=== PATIENT | male | born 1985 | race Caucasian/White ===

== ENCOUNTER 2016-10-27 18:25 | Emergency (ER) ==
[2016-10-27 18:27] VITALS: BP 106/70; TEMP 98.7; BMI 25.8
--- NOTE | 2016-10-27 18:36 | ED.PDOC ---
General ED Provider: Dr. SCOTT SAUNDERS Chief Complaint: Finger Laceration Stated Complaint: finger laceration Time Seen by Physician: 18:35 ( by a nail) Mode of Arrival: Walk-In Information Source: Patient Exam Limitations: No limitations Primary Care Provider: JOHN BRAUN Nursing and Triage Documentation Reviewed and Agree: Yes Skin Complaint Exam - Laceration/Upper Ext. Complaint/Exam Location of Injury: Right (5th finger ) Mechanism of Injury: Laceration (by a nail) Onset/Duration: 1 hr Symptoms Are: Still present Initial Severity: Mild Current Severity: None Aggravating: None Alleviating: None Associated Signs and Symptoms: Denies: Fever, Chills, Erythema, Numbness, Tingling Differential Diagnoses: Laceration Review of Systems - Review Of Systems Constitutional: Reports: No symptoms Eyes: Reports: No symptoms Ears, Nose, Mouth, Throat: Reports: No symptoms Respiratory: Reports: No symptoms Cardiac: Reports: No symptoms GI: Reports: No symptoms : Reports: No symptoms Musculoskeletal: Reports: No symptoms Skin: Reports: Other (laceration) Neurological: Reports: No symptoms Endocrine: Reports: No symptoms Hematologic/Lymphatic: Reports: No symptoms All Other Systems: Reviewed and Negative Past Medical History - Past Medical History Previously Healthy: Yes Endocrine: Reports: None Cardiovascular: Reports: None Respiratory: Reports: None Hematological: Reports: None Gastrointestinal: Reports: None Genitourinary: Reports: None Neuro/Psych: Reports: None Musculoskeletal: Reports: None Cancer: Reports: None Other Pertinent Past Medical History: hx of narcotic dependence..on methadone now - Surgical History General Surgical History: Reports: Unknown - Family History Family History: Reports: Unknown - Social History Smoking Status: Current every day smoker Hx Substance Use: No Alcohol Screening: Occasionally Physical Exam - Physical Exam Appearance: Well-appearing, No pain distress, Well-nourished Eyes: KONSTANTIN, EOMI, Conjunctiva clear ENT: Ears normal, Nose normal, Oropharynx normal Respiratory: Airway patent, Breath sounds clear, Breath sounds equal, Respirations nonlabored Cardiovascular: RRR, Pulses normal, No rub, No murmur GI/: Soft, Nontender, No masses, Bowel sounds normal, No Organomegaly Musculoskeletal: Normal strength, ROM intact, No edema, No calf tenderness Skin: Warm, Dry (0.7cm laceration on involved finger) Neurological: Sensation intact, Motor intact, Reflexes intact, Cranial nerves intact, Alert, Oriented Psychiatric: Affect appropriate, Mood appropriate Critical Care Note - Critical Care Note Total Time (mins): 0 Course - Course Orders, Labs, Meds: Orders Category Date Time Status Tetanus and Diphtheria Tox/Pf [Tenivac] MEDS 10/27/16 18:37 Discontinued 0.5 ml IM .ONCE ONE Medications Discontinued Medications Generic Name Dose Route Start Last Admin Trade Name Freq PRN Reason Stop Dose Admin Tetanus/Diphtheria Toxoids Adsorbed 0.5 ml 10/27/16 18:37 10/27/16 18:44 Tenivac IM 10/27/16 18:38 0.5 ml .ONCE ONE Administration Vital Signs: Temp Pulse Resp BP Pulse Ox 10/27/16 18:26 98.7 F 73 20 106/70 95 Departure - Departure Time of Disposition: 19:00 (refused sutured dermabonded nurse at bedside ) Disposition: HOME SELF-CARE Discharge Problem: Laceration of finger Instructions: Laceration (ED), Skin Adhesive Care (ED) Condition: Good Pt referred to PMD for follow-up: No Additional Instructions: Please call your Family Physician as soon as possible to schedule a follow-up appointment. Allergies/Adverse Reactions: Allergies No Known Allergies Allergy (Verified 10/27/16 18:28) Home Medications: Ambulatory Orders Methadone HCl 150 mg PO DAILY 05/27/14 Disposition Discussed With: Patient
[2016-10-27] MEDS ORDERED: TENIVAC IM ONE (18:37)
== END 2016-10-27 18:55 | disposition home or self-care (01) ==
LOC: ED 18:25
DX: S61.216A Laceration without foreign body of right little finger without damage to nail, initial encounter (principal); W45.0XXA Nail entering through skin, initial encounter; F17.210 Nicotine dependence, cigarettes, uncomplicated
CPT/HCPCS: 90471; 99283

== ENCOUNTER 2017-02-01 11:01 | Outpatient (CLI) ==
[2017-02-01 11:17] LABS: BASOPHILS % (AUTO) 0.5 % (0.0-3.0); EOSINOPHILS # (AUTO) 0.1 K/ul (0.0-0.7); HEMATOCRIT 37.1 % (42.0-52.0); HEMOGLOBIN 12.6 g/dl (14.0-18.0); IMMATURE GRANULOCYTE % (AUTO) 0.3 % (0.0-5.0); LYMPHOCYTES # (AUTO) 1.1 K/uL (0.60-3.4); LYMPHOCYTES % (AUTO) 12.4 (10.0-50.0); MEAN CORPUSCULAR HEMOGLOBIN 29.2 pg (27.0-31.0); MEAN CORPUSCULAR VOLUME 86.1 fl (80.0-94.0); MONOCYTES # (AUTO) 0.4 K/uL (0.4-2.0); MONOCYTES % (AUTO) 4.4 (0-10); NEUTROPHILS # (AUTO) 7.1 K/ul (2.0-6.9); NEUTROPHILS % (AUTO) 81.4; PLATELET COUNT 256 10^3/uL (140-440); RED BLOOD COUNT 4.31 10^6/ul (4.70-6.10); WHITE BLOOD COUNT 8.78 K/ul (4.2-10.2)
[2017-02-01 11:28] LABS: ADD URINE MICROSCOPIC YES; BILIRUBIN,URINE Negative (NEGATIVE); KETONES,URINE Negative (NEGATIVE); LEUKOCYTE ESTERASE ,URINE Negative (NEGATIVE); NITRITE,URINE Negative (NEGATIVE); PROTEIN,URINE Negative (NEGATIVE); URINE, BLOOD Trace-lysed (NEGATIVE)
[2017-02-01 11:37] LABS: ALBUMIN 3.4 g/dL (3.4-5.0); ALBUMIN/GLOBULIN RATIO 1.31; ANION GAP 11.5; BILIRUBIN,TOTAL 0.24 mg/dL (0.00-1.20); BUN/CREATININE RATIO 6.66; CALCIUM 8.9 mg/dL (8.2-10.2); CREATININE 0.9 mg/dL (0.60-1.10); POTASSIUM 3.5 mmol/L (3.5-5.1)
[2017-02-01 11:38] LABS: SPERM,URINE 1+ (NOT PRESENT)
--- NOTE | 2017-02-01 12:58 | CT ---
EXAM: CT of the abdomen pelvis without contrast History: Abdominal and flank pain. Comparison: CT abdomen pelvis 10/05/2013 Technique: Multiplanar CT images through the abdomen pelvis were obtained without the administration of IV contrast Findings: Lung bases are clear. No acute osseous abnormalities. No discrete gallstones identified by CT. No focal liver or splenic lesions. No renal stones and no hydronephrosis. The visualized appendix is not dilated or inflamed. Patel colonic wall thickening wit h pericolonic inflammation. Bladder is not well distended. No free air. No ascites. No peripancre atic inflammation. Adrenal glands are unremarkable. Impression: Pancolitis. The etiology is most likely infectious or inflammatory.
== END 2017-02-01 11:02 | disposition home or self-care (01) ==
LOC: RAD 11:01
PROVIDERS: ATTEND Nurse Practitioner Family
DX: R10.9 Unspecified abdominal pain (principal); R10.817 Generalized abdominal tenderness; R11.0 Nausea; R19.7 Diarrhea, unspecified
CPT/HCPCS: 36415; 80053; 81001; 85025; 87015; 87045; 87493; 87899; 89055

== ENCOUNTER 2017-02-20 15:06 | Emergency (ER) ==
[2017-02-20 15:12] VITALS: BP 129/81; TEMP 97; BMI 23.9
[2017-02-20 16:16] LABS: BASOPHILS % (AUTO) 0.4 % (0.0-3.0); EOSINOPHILS # (AUTO) 0.1 K/ul (0.0-0.7); EOSINOPHILS % (AUTO) 0.7 % (0.0-7.0); IMMATURE GRANULOCYTE % (AUTO) 0.3 % (0.0-5.0); LYMPHOCYTES # (AUTO) 0.8 K/uL (0.60-3.4); MEAN CORPUSCULAR HEMOGLOBIN 29.4 pg (27.0-31.0); MEAN CORPUSCULAR HGB CONC 33.3 (31.8-35.4); MEAN CORPUSCULAR VOLUME 88.2 fl (80.0-94.0); MONOCYTES # (AUTO) 0.4 K/uL (0.4-2.0); MONOCYTES % (AUTO) 4.9 (0-10); NEUTROPHILS # (AUTO) 6.3 K/ul (2.0-6.9); NEUTROPHILS % (AUTO) 83.7; PLATELET COUNT 199 10^3/uL (140-440); RED BLOOD COUNT 4.42 10^6/ul (4.70-6.10); WHITE BLOOD COUNT 7.49 K/ul (4.2-10.2)
[2017-02-20 16:22] LABS: BILIRUBIN,URINE 1+ (NEGATIVE); KETONES,URINE Trace (NEGATIVE); LEUKOCYTE ESTERASE ,URINE Trace (NEGATIVE); NITRITE,URINE Positive (NEGATIVE); PH,URINE 6.5 (5-9); PROTEIN,URINE Negative (NEGATIVE); URINE, BLOOD Negative (NEGATIVE)
[2017-02-20 16:23] LABS: ADD URINE MICROSCOPIC YES
[2017-02-20 16:42] LABS: ALBUMIN 2.9 g/dL (3.4-5.0); ALBUMIN/GLOBULIN RATIO 1.07; ANION GAP 7.4; BILIRUBIN,TOTAL 0.26 mg/dL (0.00-1.20); BUN/CREATININE RATIO 8.86; CALCIUM 8.4 mg/dL (8.2-10.2); CREATININE 0.79 mg/dL (0.60-1.10); POTASSIUM 3.4 mmol/L (3.5-5.1); TOTAL PROTEIN 5.6 g/dL (6.4-8.2)
--- NOTE | 2017-02-20 17:01 | CT ---
EXAM: CT of the abdomen pelvis without contrast History: Abdominal pain. Comparison: CT abdomen pelvis 02/01/2017 Technique: Multiplanar CT images through the abdomen pelvis were obtained without the administration of IV contrast Findings: Lung bases are free of consolidation. No acute osseous abnormalities. No discrete gallstones identified by CT. No focal liver or splenic lesions. No peripancreatic infla mmation. Adrenal glands are unremarkable. No renal stones and no hydronephrosis. The appendix is n ot dilated or inflamed. No bowel obstruction. No bladder wall thickening. Prostate is not enlarged . No free air. No ascites. Persistent damon colonic wall thickening but slightly improved compared t o the prior study. Prominent scattered reactive mesenteric lymph nodes again identified. Impression: Persistent but slightly improving pancolitis. Etiology is most likely infectious or inf lammatory.
--- NOTE | 2017-02-20 17:25 | ED.PDOC ---
General ED Provider: Dr. SCOTT SAUNDERS Chief Complaint: Nausea/Vomiting Stated Complaint: abdominal pain Time Seen by Physician: 15:10 (this is a chronic condition) Mode of Arrival: Walk-In Information Source: Patient Exam Limitations: No limitations Primary Care Provider: JOHN BRAUN Nursing and Triage Documentation Reviewed and Agree: Yes GI Complaint Exam - Abdominal Pain Complaint/Exam Onset: Gradual Duration: chronic with many flares no colonscopy has been done Symptoms Are: Resolved Timing: Intermittent Initial Severity: Moderate Current Severity: Mild Location of Pain: Diffuse Radiates To: Denies: Chest, Back, Flank, LLQ, RLQ, Inguinal Character: Reports: Cramping Aggravating: Reports: None Alleviating: Reports: None Associated Signs and Symptoms: Denies: Diaphoresis, Fever, Cough, Chest pain, Dizziness, Back pain, Constipation, Blood in stool, Dysuria, Urinary frequency, Decreased urine output, Decreased appetite, Discharge, Nausea, Vomiting, Diarrhea, Decreased activity Related History: Reports: Similar episode AAA Risk Factors: Reports: None Cardiac Risk Factors: Reports: None Testicular Torsion Risk Factors: Reports: None Surgical Obstruction Risk Factors: Reports: None Related Surgical History: Reports: None Abdominal Findings: Present: None Differential Diagnoses: Constipation, Gastroenteritis, Hepatitis, Pancreatitis, Pneumonia, Renal Colic, Ureteral Stone, UTI Review of Systems - Review Of Systems Constitutional: Reports: No symptoms Eyes: Reports: No symptoms Ears, Nose, Mouth, Throat: Reports: No symptoms Respiratory: Reports: No symptoms Cardiac: Reports: No symptoms GI: Reports: Abdominal pain : Reports: No symptoms Musculoskeletal: Reports: No symptoms Skin: Reports: No symptoms Neurological: Reports: No symptoms Endocrine: Reports: No symptoms Hematologic/Lymphatic: Reports: No symptoms All Other Systems: Reviewed and Negative Past Medical History - Past Medical History Previously Healthy: Yes Endocrine: Reports: None Cardiovascular: Reports: None Respiratory: Reports: None Hematological: Reports: None Gastrointestinal: Reports: None Genitourinary: Reports: None Neuro/Psych: Reports: None Musculoskeletal: Reports: None Cancer: Reports: None Other Pertinent Past Medical History: hx of narcotic dependence..on methadone now - Surgical History General Surgical History: Reports: Unknown - Family History Family History: Reports: Unknown - Social History Smoking Status: Current every day smoker, Heavy tobacco smoker Hx Substance Use: No Alcohol Screening: None Physical Exam - Physical Exam Appearance: Well-appearing, No pain distress, Well-nourished Eyes: KONSTANTIN, EOMI, Conjunctiva clear ENT: Ears normal, Nose normal, Oropharynx normal Respiratory: Airway patent, Breath sounds clear, Breath sounds equal, Respirations nonlabored Cardiovascular: RRR, Pulses normal, No rub, No murmur GI/: Soft, Nontender, No masses, Bowel sounds normal, No Organomegaly Musculoskeletal: Normal strength, ROM intact, No edema, No calf tenderness Skin: Warm, Dry, Normal color Neurological: Sensation intact, Motor intact, Reflexes intact, Cranial nerves intact, Alert, Oriented Psychiatric: Affect appropriate, Mood appropriate Interpretation - Radiology Interpretation Radiology Interpretation By: Radiologist Radiology Results: No acute changes Critical Care Note - Critical Care Note Total Time (mins): 0 Course - Course Hematology/Chemistry: 02/20/17 16:12 02/20/17 16:12 Orders, Labs, Meds: Lab Review 02/20/17 02/20/17 02/20/17 15:20 16:12 16:12 WBC 7.49 RBC 4.42 L Hgb 13.0 L Hct 39.0 L MCV 88.2 MCH 29.4 MCHC 33.3 RDW Coeff of [place] 13.4 Plt Count 199 Immature Gran % (Auto) 0.3 Neut % (Auto) 83.7 Lymph % (Auto) 10.0 [place] % (Auto) 4.9 Eos % (Auto) 0.7 Baso % (Auto) 0.4 Immature Gran # (Auto) 0.0 Neut # 6.3 Lymph # 0.8 [place] # 0.4 Eos # 0.1 Baso # 0.0 Sodium 138 Potassium 3.4 L Chloride 105 Carbon Dioxide 29 Anion Gap 7.4 BUN 7 Creatinine 0.79 Estimated GFR (MDRD) 113.00 BUN/Creatinine Ratio 8.86 Glucose 118 H Calcium 8.4 Total Bilirubin 0.26 AST 13 L ALT 12 Alkaline Phosphatase 63 Total Protein 5.6 L Albumin 2.9 L Globulin 2.7 Albumin/Globulin Ratio 1.07 Amylase 35 Lipase 5 L Urine Color Yellow Urine Clarity Clear Urine pH 6.5 Ur Specific [place] 1.025 Urine Protein Negative Urine Glucose (UA) Negative Urine Ketones Trace Urine Blood Negative Urine Nitrite Positive Urine Bilirubin 1+ Urine Urobilinogen 0.2 Ur Leukocyte Esterase Trace Urine Microscopic RBC 0-2 Urine Microscopic WBC 0-2 Ur Squamous Epith Cells Not present Orders Category Date Time Status AMYLASE Stat LAB 02/20/17 16:12 Completed CBC W/ AUTO DIFF Stat LAB 02/20/17 16:12 Completed COMPREHENSIVE METABOLIC PANEL Stat LAB 02/20/17 16:12 Completed LIPASE Stat LAB 02/20/17 16:12 Completed URINALYSIS C & S IF INDICATED Stat LAB 02/20/17 15:20 Completed URINE CULTURE Stat LAB 02/20/17 15:[address] ABDOMEN/PELVIS WO CONTRAST Stat RADS 02/20/17 16:03 Completed Vital Signs: Temp Pulse Resp BP Pulse Ox 02/20/17 15:07 97 F L 90 20 129/81 96 Departure - Departure Time of Disposition: 17:24 (discharge info given with efren at bedside ) Disposition: HOME SELF-CARE Discharge Problem: Colitis Abdominal pain Qualifiers: Abdominal location: generalized Qualified Code(s): R10.84 - Generalized abdominal pain Instructions: Colitis (ED), Abdominal Pain (ED) Condition: Good Pt referred to PMD for follow-up: Yes Additional Instructions: Please call your Family Physician as soon as possible to schedule a follow-up appointment. you need a colonscopy as soon as possible as we discussed Allergies/Adverse Reactions: Allergies No Known Allergies Allergy (Verified 02/20/17 15:13) Home Medications: Ambulatory Orders Methadone HCl 150 mg PO DAILY 05/27/14 Disposition Discussed With: Patient
== END 2017-02-20 17:41 | disposition home or self-care (01) ==
LOC: ED 15:06
DX: R10.84 Generalized abdominal pain (principal); K52.9 Noninfective gastroenteritis and colitis, unspecified; F17.210 Nicotine dependence, cigarettes, uncomplicated
CPT/HCPCS: 36415; 80053; 81001; 82150; 83690; 85025; 87086; 99283

== ENCOUNTER 2017-11-28 09:39 | Emergency (ER) | payer OTHER ==
[2017-11-28 09:47] VITALS: BP 118/70; TEMP 97.9; BMI 26.2
--- NOTE | 2017-11-28 10:15 | ED.PDOC ---
General ED Provider: Dr. PEE MASON Chief Complaint: Rash Stated Complaint: Rash. Onset 2 days ago ; exposed to poison gregory at [facility]. Location: Rt Leg outer posterior aspect. Few lesions abdomen. Assoc: Itching. Shoulder Pain. RT/NO known injury. Pain upon ROM of Rt Shoulder through circumduction. Chronic. Time Seen by Physician: 10:00 Mode of Arrival: Walk-In Information Source: Patient Exam Limitations: No limitations Primary Care Provider: JACIEL LEACH Nursing and Triage Documentation Reviewed and Agree: Yes Does patient meet sepsis criteria?: No System Inflammatory Response Syndrome: Not Applicable Sepsis Protocol: For patient's 13 years and over: Temp is 96.8 and below OR 101 and greater Pulse >90 BPM Resp >20/minute Acutely Altered Mental Status Are patient's symptoms suggestive of a new infection, such as: -Pneumonia -Skin, Soft Tissue -Endocarditis -UTI -Bone, Joint Infection -Implantable Device -Acute Abdominal Infection -Wound Infection -Meningitis -Blood Stream Catheter Infection -Unknown Skin Complaint Exam - Skin Rash/Itching Complaint/Exam Onset/Duration: 2 days Symptoms Are: Still present Initial Severity: Severe Current Severity: Moderate Potential Exposures: Reports: Plants Aggravating: Reports: Heat, Clothing Alleviating: Reports: None Associated Signs and Symptoms: Denies: Difficulty breathing, Fever, Chills Skin Findings: Present: Papules, Vesicles Differential Diagnoses: Allergic Reaction, Contact Dermatitis Review of Systems - Review Of Systems Constitutional: Reports: No symptoms Eyes: Reports: No symptoms Ears, Nose, Mouth, Throat: Reports: No symptoms Respiratory: Reports: No symptoms Cardiac: Reports: No symptoms GI: Reports: No symptoms : Reports: No symptoms Musculoskeletal: Reports: No symptoms, Joint pain Skin: Reports: No symptoms, Rash Neurological: Reports: No symptoms Endocrine: Reports: No symptoms Hematologic/Lymphatic: Reports: No symptoms All Other Systems: Reviewed and Negative Past Medical History - Past Medical History Previously Healthy: Yes Endocrine: Reports: None Cardiovascular: Reports: None Respiratory: Reports: None Hematological: Reports: None Gastrointestinal: Reports: None Genitourinary: Reports: None Neuro/Psych: Reports: None Musculoskeletal: Reports: None Cancer: Reports: None Other Pertinent Past Medical History: hx of narcotic dependence..on methadone now - Surgical History General Surgical History: Reports: Unknown - Family History Family History: Reports: Unknown - Social History Smoking Status: Current every day smoker, Heavy tobacco smoker Hx Substance Use: Yes (TAKES METHADONE) Alcohol Screening: None - Immunizations Tetanus Shot up to Date: Yes Physical Exam - Physical Exam Appearance: Well-appearing, No pain distress, Well-nourished Eyes: KONSTANTIN, EOMI, Conjunctiva clear ENT: Ears normal, Nose normal, Oropharynx normal Respiratory: Airway patent, Breath sounds clear, Breath sounds equal, Respirations nonlabored Cardiovascular: RRR, Pulses normal, No rub, No murmur GI/: Soft, Nontender, No masses, Bowel sounds normal, No Organomegaly Musculoskeletal: Normal strength (Tenderness RT AC), ROM intact, No edema, No calf tenderness Skin: Warm, Dry (Rash Rt leg-papulovesicular diffuse), Normal color Neurological: Sensation intact, Motor intact, Reflexes intact, Cranial nerves intact, Alert, Oriented Psychiatric: Affect appropriate, Mood appropriate Critical Care Note - Critical Care Note Total Time (mins): 0 Course - Course Orders, Labs, Meds: Orders Category Date Time Status Methylprednisolone Sod Succ/Pf [Solu-Medrol 125 mg] MEDS 11/28/17 10:20 Discontinued 125 mg IM ONCE STA SHOULDER, RIGHT MIN 2V Stat RADS 11/28/17 10:21 Completed Medications Discontinued Medications Generic Name Dose Route Start Last Admin Trade Name Freq PRN Reason Stop Dose Admin Methylprednisolone Sodium Succinate 125 mg 11/28/17 10:20 11/28/17 10:34 Solu-Medrol 125 Mg IM 11/28/17 10:21 125 mg ONCE STA Administration Vital Signs: Temp Pulse Resp BP Pulse Ox 11/28/17 09:42 97.9 F 68 16 118/70 96 Departure - Departure Time of Disposition: 11:00 Disposition: HOME SELF-CARE Discharge Problem: Rash Instructions: Acute Rash (ED), Itchy Skin (ED), Shoulder Pain (ED) Condition: Good Pt referred to PMD for follow-up: Yes (1 week to recheck rash and shoulder joint ) IPMP verified?: No Additional Instructions: Take Zyrtec 10 mg 1 daily to reduce itching Take Benadryl 25 mg take 1 -2 caps every 6 hours for additional itching relief (my cause drowsiness) Take Ibuprofen 200 mg 2-3 tabs every 6 hours for pain as needed Steroid injection should assist in reducing symptoms Follow up if worsens. Allergies/Adverse Reactions: Allergies No Known Allergies Allergy (Verified 11/28/17 09:41) Home Medications: Ambulatory Orders Methadone HCl 170 mg PO DAILY 05/27/14 Disposition Discussed With: Patient Musculoskeletal Complaint Exam - Shoulder Pain Complaint/Exam Mechanism of Injury: Reports: No known trauma Onset/Duration: several months Symptoms Are: Still present Timing: Constant Initial Severity: Mild Current Severity: Moderate Location: Reports: Diffuse Character: Reports: Aching Alleviating: Reports: Rest Aggravating: Reports: Movement, Lifting, Flexion, External rotation Associated Signs and Symptoms: Denies: Swelling, Redness, Bruising, Fever, Weakness, Numbness, Tingling Related History: Reports: Similar episode DVT Risk Factors: Reports: None Septic Arthritis Risk Factors: Reports: None Related Surgical History: Reports: None Tenderness: Present: AC joint Limited Range of Motion: Present: External rotation Differential Diagnoses: Arthritis, Rotator Cuff Injury, Strain, Tendonitis, Other (AC strain )
[2017-11-28] MEDS ORDERED: SOLU-MEDROL 125 MG IM STA (10:20)
--- NOTE | 2017-11-28 10:40 | DI ---
EXAM: Right shoulder three view HISTORY: Pain, restricted movement COMPARISON: None FINDINGS: The bones are normal. The glenohumeral joint and acromioclavicular joint are normal. No fo aidee soft tissue abnormality. Visualized portion of the chest is normal. IMPERSSION: Normal examination.
== END 2017-11-28 11:15 | disposition home or self-care (01) ==
LOC: ED 09:39
DX: R21 Rash and other nonspecific skin eruption (principal); M25.511 Pain in right shoulder; F17.210 Nicotine dependence, cigarettes, uncomplicated
CPT/HCPCS: 96372; 99282

== ENCOUNTER 2018-10-09 09:48 | Outpatient (CLI) | END 2018-10-09 09:49 | disposition home or self-care (01) | LOC: RHC-LAB 09:48 | PROVIDERS: ATTEND Nurse Practitioner Family | DX: N62 Hypertrophy of breast (principal); R53.83 Other fatigue; R68.82 Decreased libido; F11.20 Opioid dependence, uncomplicated | CPT/HCPCS: 36415; 83001; 83002; 84402; 84403 ==

== ENCOUNTER 2018-10-15 11:00 | Outpatient (CLI) | END 2018-10-15 11:01 | disposition home or self-care (01) | LOC: RHC-LAB 11:00 → FCC-LAB 11:01 | PROVIDERS: ATTEND Family Medicine | DX: E29.1 Testicular hypofunction (principal) | CPT/HCPCS: 36415; 84146; 84443 ==

== ENCOUNTER 2018-10-21 08:01 | Outpatient (CLI) | END 2018-10-21 08:02 | disposition home or self-care (01) | LOC: RHC-LAB 08:01 → FCC-LAB 08:02 | PROVIDERS: ATTEND Family Medicine | DX: E29.1 Testicular hypofunction (principal); R79.89 Other specified abnormal findings of blood chemistry | CPT/HCPCS: 36415; 80053; 82533; 83540; 83550; 84403; 84466; 85025 ==

== ENCOUNTER 2018-10-23 13:14 | Outpatient (CLI) ==
--- NOTE | 2018-10-26 10:51 | MRI ---
MRI the brain without and with contrast . HISTORY: Testicular hypofunction. COMPARISON: None of this type. CT 03/14/2015. PROCEDURE: Multiplanar, multisequence imaging the brain performed without and with contrast. 15 ml of Dotarem. FINDINGS: The CSF spaces, including the ventricles, sulci and cisterns and surrounding meninges demo nstrate no evidence of abnormal extra-axial fluid collections or hematomas or meningeal based lesions . The cerebral hemispheres demonstrate no mass or mass effect or acute hemorrhage or infarct. The periventricular and Centrum semiovale white matter demonstrates no evidence of significant white mat ter disease for age. The major vascular structures at the level of the [place] of [place], including the internal carotid and basilar arteries and their major branches demonstrate detectable flow voids and grossly normal anatomy at the present level of resolution. The major posterior fossa structures including the cerebellar hemispheres and vermis appear normal for age. The brainstem appears normal . The petrous pyramids and mastoid air cells appear normal. The seventh and eighth nerve complexe s, IACs and visualized inner ear structures are symmetric and normal in appearance at standard resol ution ( no high resolution images are included ).. The cervicomedullary junction and region of the f oramen magnum demonstrate no evidence of tonsillar ectopy or Chiari malformation. The region of the sella turcica and contained pituitary gland demonstrates no intra or supra sellar mass or mass effec t. High-resolution pre and postcontrast images show a small (approximately 2 mm diameter) irregular region of decreased activity to the left of the infundibulum on the coronal precontrast images which appears to enhance following contrast. This may represent a small atypical microadenoma. The orbi ts and orbital contents appear symmetric and within normal limits. The paranasal sinuses appear nor brian developed and aerated. There is a rightward bowing of the nasal septum and a prominent katherine bullosa of the left middle turbinate. Post contrast images demonstrate no enhancing lesions in the br ain or meninges. IMPRESSION: 1. The MRI examination demonstrates normal, age appropriate cerebral and cerebellar anatomy. 2. There is no evidence of intracerebral mass, mass effect, acute hemorrhage or acute infarct. 3. Supratentorial and infratentorial white matter are normal in appearance. 4. There is a small (approximately 2 mm diameter) hypointense lesion in the pituitary gland to the l eft of the infundibulum which appears to enhance following contrast and may represent a small atypical microaden pedro pablo. 5. Postcontrast images demonstrates no abnormal enhancing lesion within the brain or meninges elsewh ere.
== END 2018-10-23 13:15 | disposition home or self-care (01) ==
LOC: RAD 13:14
PROVIDERS: ATTEND Family Medicine
DX: E29.1 Testicular hypofunction (principal); R79.89 Other specified abnormal findings of blood chemistry